=== PATIENT | male | born 1990 | race Caucasian/White ===

== ENCOUNTER 2020-08-07 09:28 | Emergency (ER) | payer SELFPAY ==
[~2020-08-07] VITALS: Ht 177.8 cm; Wt 73.0 kg
[2020-08-07 11:30] VITALS: BP 132/76
== END 2020-08-07 13:23 | disposition home or self-care (01) ==
LOC: ER 09:28
DX: S61.512A Laceration without foreign body of left wrist, initial encounter (principal); X78.1XXA Intentional self-harm by knife, initial encounter; Y93.89 Activity, other specified; Y92.018 Other place in single-family (private) house as the place of occurrence of the external cause
CPT/HCPCS: 99283